=== PATIENT | female | born 1990 | race Caucasian/White ===

== ENCOUNTER 2016-04-25 21:50 | Emergency (ER) | payer MEDICAID ==
[~2016-04-25 21:50] MED LIST: AMOXICILLIN PO; BACTRIM DS TABL1 TA1 PO; BUSPIRONE HCL7.5 MG PO; FLEXERIL10 MG PO; IBUPROFEN800 MG PO; MACROBID100 M1 PO; MOTRIN600 M1 PO; NO MEDICATIONS; PRENATA CHEWAB1 EACH PO; PRENATAL1 TA1; PRENATAL1 TA1 PO; VOLTAREN75 MG PO
[2016-05-30] MEDS ORDERED: ZOLOFT PO (19:58)
[2016-05-30] MEDS ORDERED: BIRTH CONTROL PILL PO (19:58)
[2016-05-30] MEDS ORDERED: MELATONIN3 MG PO (19:58)
== END 2016-04-25 22:38 | disposition home or self-care (01) ==
LOC: SED 21:50
DX: H65.93 Unspecified nonsuppurative otitis media, bilateral (principal); F17.210 Nicotine dependence, cigarettes, uncomplicated; F41.9 Anxiety disorder, unspecified; Z88.1 Allergy status to other antibiotic agents
CPT/HCPCS: 99282

== ENCOUNTER 2016-05-30 20:20 | Emergency (ER) | payer MEDICAID ==
--- NOTE | ~2016-05-30 | CR141 ---
[facility]. [facility] A Service of [facility] & [facility] RADIOLOGY TEXT RESULTS PATIENT: ADALBERTO SCALES LOCATION: SED : 89 UNIT #: [id number] AGE: [address]: Sharita Hodges SEX: F ORDER DR: [id number] [address] [address] [id number] E MR#: [id number] Acc #: [id number] NAME: ADALBERTO SCALES. : 1990 SEX: F STUDY DATE/TIME: 05/30/2016 20:10 UNIT: SED ROOM: STUDY DESCRIPTION: CR Hand Min 3 Views Lt Attending Physician: Sharita Hodges Pa-C Ordering Physician: Sharita Hodges Pa-C Primary Care Physician: Rey Castano M.D. MEDICAL IMAGING REPORT This report is preliminary unless electronic signature is present. EXAM Left hand, 3 views. HISTORY Hand pain and bruising today after punching a refrigerator. FINDINGS 3 views left hand demonstrate subtle linear lucency through the ulnar base of the fifth metacarpal, concerning for a nondisplaced fracture. Remainder of the bone alignment is normal. No joint space narrowing. No dislocation. No opaque soft tissue foreign body. IMPRESSION 1. Probable subtle nondisplaced transverse fracture through the ulnar margin of the base of the fifth metacarpal. Suggest correlation of the patient's symptoms in this region. 2. No additional fracture, joint space narrowing or dislocation. Dictated by... Matthew Payton M.D. THIS IS AN ELECTRONICALLY VERIFIED REPORT Matthew Payton M.D. at 05/30/2016 11:13 PM DEE/nuzhat TD: 05/30/2016 22:16 JOB #: [id number] MEDICAL IMAGING REPORT Page 1 of 1
[~2016-05-30 20:20] MED LIST changes: +BIRTH CONTROL PILL PO; +MELATONIN3 MG PO; +ZOLOFT PO
== END 2016-05-30 21:35 | disposition home or self-care (01) ==
LOC: SED 20:20
DX: S62.347A Nondisplaced fracture of base of fifth metacarpal bone, left hand, initial encounter for closed fracture (principal); F17.210 Nicotine dependence, cigarettes, uncomplicated; Z88.8 Allergy status to other drugs, medicaments and biological substances; Z79.899 Other long term (current) drug therapy; X50.0XXA Overexertion from strenuous movement or load, initial encounter; Y92.89 Other specified places as the place of occurrence of the external cause
CPT/HCPCS: 29125; 73130; 99283